=== PATIENT | female | born 1955 | race African-American/Black ===

== ENCOUNTER 2017-06-27 21:29 | Emergency (ER) | payer OTHER ==
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
[2017-06-28 00:24] VITALS: BP 155/68
== END 2017-06-28 00:20 | disposition home or self-care (01) ==
LOC: ED 21:29
DX: S16.1XXA Strain of muscle, fascia and tendon at neck level, initial encounter (principal); V49.59XA Passenger injured in collision with other motor vehicles in traffic accident, initial encounter; Y93.9 Activity, unspecified; Y92.9 Unspecified place or not applicable; Y99.9 Unspecified external cause status
CPT/HCPCS: 70450; 72125

== ENCOUNTER 2017-10-28 07:31 | Outpatient (CLI) | payer OTHER ==
--- NOTE | 2017-10-28 09:26 | Mammography Report ---
BILATERAL MAMMOGRAM: FINDINGS: The breast tissue is heterogeneously dense, which could obscure detection of small masses (approximately 50%-75% glandular). No mass, distortion, suspicious calcification, or skin change is seen. No interval changes when compared to prior exams dating back to 2015. CAD was utilized. IMPRESSION: Negative mammogram. There is no mammographic evidence of malignancy. RECOMMENDATION: Follow-up per ACS guidelines. BI-RADS CATEGORY: 1 = Negative ACR BI-RADS MAMMOGRAPHIC CODES: 0 = Needs additional imaging evaluation; 1 = Negative; 2 = Benign; 3 = Probably benign; 4 = Suspicious; 5 = Malignant; 6 = Known biopsy-proven malignancy COMMENT: 1. Dense breast tissue, i.e., adenosis, fibrocystic changes, etc., may obscure an underlying neoplasm. 2. Approximately 10% of cancers are not detected with mammography. 3. A negative mammography report should not delay biopsy if a clinically suspicious mass is present. COMMENT: Patient follow-up letters are generated in [employer].
== END 2017-10-28 07:32 | disposition home or self-care (01) ==
LOC: MAMMO 07:31
PROVIDERS: ATTEND Family Medicine
DX: Z12.31 Encounter for screening mammogram for malignant neoplasm of breast (principal)
CPT/HCPCS: 77067; G0202

== ENCOUNTER 2022-02-13 09:00 | Outpatient (CLI) | payer OTHER ==
[2022-02-13 09:43] LABS: Blood Urea Nitrogen 22 mg/dL (7-17)
--- NOTE | 2022-02-13 13:30 | Nuclear Medicine Report ---
NUCLEAR MEDICINE BONE SCAN, WHOLE BODY INDICATION: C18.4. Initial staging of colon cancer TECHNIQUE: 26.3 mCi of Tc-99m MDP were injected IV. Whole body images were obtained. COMPARISON: No relevant prior imaging study available. FINDINGS: Skeletal Structures: Fairly symmetric, likely degenerative uptake is present involving the shoulders , sternoclavicular joints and knees. Skeletal Lesions: None. Soft Tissues: Normal. Kidneys: Normal, symmetric activity. Additional Findings: None. IMPRESSION: No evidence for metastatic disease to the bones.. Signer Name: Pedrito Dawson Jr, MD Signed: 02/13/2022 1:25 PM Workstation Name: [id number]
--- NOTE | 2022-02-13 14:26 | Cat Scan Report ---
CT CHEST, ABDOMEN, AND PELVIS WITH CONTRAST INDICATION: Initial staging of colon cancer CONTRAST: Oral, 100 cc Isovue-300 IV COMPARISON: None available. All CT scans at this location are performed using CT dose reduction for ALARA by means of automated e xposure control. FINDINGS: No significant focal bony lesions. Slight anterior loss of height of the L1 vertebral body probably is old. No significant axillary or chest wall abnormalities. No mediastinal or hilar masses. A small right lo wer paratracheal node is mildly prominent with short axis diameter of 11 mm. No obvious endobronchial lesions. No pleural effusions. Lung haskins clear of infiltrates. In the posterior lateral sulcus of the left lower lobe a questionable nodule is seen without calcification measuring 3 mm which more lik khalida is a small area of scarring instead of a true nodule. No other nodules or masses are seen in the pulmonary parenchyma. No pneumoperitoneum. Slight fatty infiltration of the liver is noted but no focal lesions are seen an d liver is not significantly enlarged. No abdominal masses. No urinary obstruction. No inflammatory c hanges. Gallbladder and bile ducts normal. No bowel obstruction. Appendix normal. Surgical changes are noted in in the hepatic flexure of the co horace. No colonic lesions are seen. No small bowel abnormalities are noted. Stranding in the mesentery of the right abdomen probably relates to surgery. No abnormal fluid collections are seen to suggest a bscess. No mesenteric masses. No retroperitoneal lymphadenopathy. Minimal right pelvic node with shor t axis diameter of only 3 mm is of questionable significance and similar tiny node is seen in the lef t obturator region. No other adenopathy. No free fluid. No pelvic masses. IMPRESSION: 1. No definite areas of active neoplasia 2. Mild jd prominence in the mediastinum and minimally in the pelvis bilaterally is questionably s ignificant but I would suggest follow-up. 3. No postoperative complication seen. 4. Doubtful nodule in the left lower lobe as above, probably a scar. This could be followed however. Signer Name: Leobardo Lopez MD Signed: 02/13/2022 2:22 PM Workstation Name: [id number]
== END 2022-02-13 09:01 | disposition home or self-care (01) ==
LOC: NM 09:00
PROVIDERS: ATTEND Internal Medicine Hematology
DX: C18.4 Malignant neoplasm of transverse colon (principal); K76.0 Fatty (change of) liver, not elsewhere classified; R59.0 Localized enlarged lymph nodes
CPT/HCPCS: 36415; 71260; 74177; 78306; 82565; 84520; A9503; Q9967